=== PATIENT | female | born 1940 | race Caucasian/White ===

== ENCOUNTER 2018-08-15 19:03 | Emergency (ER) | payer MEDICARE ==
[~2018-08-15 19:03] MED LIST: ISOVUE-370 76%-LOCM 1 ML ONE
[2018-08-15 19:41] LABS: Bilirubin Negative (Negative); Blood, Urine Large (Negative); Clarity CLOUDY (Clear); Glucose, Urine (Dipstick) Negative (Negative); Leukocyte Moderate (Negative); Nitrite Negative (Negative); Protein, Urine (Dipstick) 300 mg/dL (Neg-Trace); Urobilinogen 0.2 mg/dL (0.2-1.0); pH, Urine 6.5 (5.0-9.0)
[2018-08-15 19:42] LABS: Bacteria/HPF 1+ HPF (None Seen); Hyaline Casts/LPF 0-3 HYALINE CAST LPF (0-3 Hyaline); Pathc Cast-AUWi Flag 0.43 (0-2.49); RBC/HPF GREATER THAN 50-TNTC HPF (0-3); Squamous Epithelial None Seen HPF (0-3)
[2018-08-15 20:23] LABS: #Basophils 0.1 thou/uL (0.0-0.2); #Eosinphils 0.1 thou/uL (0.0-0.7); #Lymphocytes 4.6 thou/uL (1.20-3.40); #Monocytes 0.8 thou/uL (0.11-0.59); #Neutrophils 6.7 thou/uL (1.40-6.50); %Eosinophils 0.7 % (0.0-10.0); %Lymphocytes 37.4 % (21.0-51.0); %Monocytes 6.4 % (0.0-10.0); %Neutrophils 54.5 % (42.0-75.0); Hemoglobin 13.1 g/dL (12.0-16.0); Mean Corpuscular HGB CONC 34.7 g/dL (32.0-36.0); Mean Corpuscular Hemoglobin 31.5 pg (27.0-31.0); Platelet Count 176 thou/uL (130-400); RBC Distribution Width 12.4 % (11.5-14.5); Red Blood Cell (RBC) Count 4.15 mill/uL (4.20-5.40); White Blood Cell (WBC) Count 12.3 thou/uL (4.8-10.8)
[2018-08-15] MEDS ORDERED: Sodium Chloride 0.9% 100 ML ONE (20:42)
[2018-08-15] MEDS ORDERED: cefTRIAXone\\ROCEPHIN 1 GM VIAL ONE (20:42)
[2018-08-15 20:51] LABS: ALT (SGPT) 21 U/L (8-55); AST (SGOT) 35 U/L (5-34); Albumin 4.5 g/dL (3.4-4.8); Alkaline Phosphatase 86 U/L (40-150); Anion Gap 18 mmol/L (10-20); BUN (Urea Nitrogen) 20 mg/dL (9.8-20.1); Bilirubin, Total 0.6 mg/dL (0.2-1.2); Calc. Creatinine Clearance 0 mL/min (70-130); Carbon Dioxide 21 mmol/L (23-31); Chloride 104 mmol/L (98-107); Estimated GFR-MDRD 51; Globulin 2.9 g/dL (2.4-3.5); Glucose 179 mg/dL (83-110); Lipase 39 U/L (8-78); Potassium 5.2 mmol/L (3.5-5.1); Protein, Total 7.4 g/dL (6.0-8.3); Sodium 138 mmol/L (136-145)
--- NOTE | 2018-08-15 22:05 | CT ---
CT OF THE ABDOMEN AND PELVIS WITH IV CONTRAST 08/15/18 INDICATION: Abdominal pain. COMPARISON: Prior exam dated 12/11/16. FINDINGS: The lung bases are clear. The liver, spleen, pancreas, and right adrenal gland are normal appearing. There is a stable nodule i nvolving the left adrenal body likely reflecting an adenoma. This has been stable since 2008. There i s slight prominence of both ureters with mild right hydronephrosis. There is prominent wall thickenin g involving the bladder. There is an exophytic lesion off the posterior aspect of the superior pole of the right kidney on yeison ge 20 of series 2 measuring 1 cm. There are moderate calcifications involving the abdominal aorta. There is a mild amount of retained s tool within the colon. No drainable fluid collection is evident. Scattered degenerative and osteoarthritic change. IMPRESSION: 1. Moderate wall thickening involving the bladder suspicious for cystitis. There is slight promi nence of both ureters which may reflect sequela of ascending urinary tract infection. There is mild r ight hydronephrosis. There is no jordin evidence of pyelonephritis. 2. Exophytic suspected enhancing lesion off the posterior aspect of the superior pole of the lef t kidney. This was not seen on comparison in 2008 and appears to more prominent upon respective revie w of a comparison from 12/11/16 from [facility]. A nonemergent followup MRI of the abd omen utilizing renal mass protocol may be helpful for improved characterization. 3. Stable left adrenal nodule. 4. Other chronic findings as above. POS: [facility]
== END 2018-08-15 20:35 | disposition home or self-care (01) ==
LOC: ERS 19:03
DX: N39.0 Urinary tract infection, site not specified (principal); K59.00 Constipation, unspecified; N28.89 Other specified disorders of kidney and ureter; E03.9 Hypothyroidism, unspecified; E11.9 Type 2 diabetes mellitus without complications; E78.5 Hyperlipidemia, unspecified; I10 Essential (primary) hypertension; Z79.899 Other long term (current) drug therapy
CPT/HCPCS: 36415; 74177; 80053; 81003; 81015; 83605; 83690; 85025; 87040; 87077; 87086; 87186; 96365; 96375; J0696; J2270; J7050

== ENCOUNTER 2018-10-01 12:06 | Outpatient (CLI) | payer MEDICARE ==
[~2018-10-01 12:06] MED LIST changes: +Gadobenate Dimeglumine 529 MG/1 ML (20ML VIAL) ONE; -ISOVUE-370 76%-LOCM 1 ML ONE
--- NOTE | 2018-10-02 09:51 | MRI ---
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 Status post chemotherapy. TECHNIQUE: Multiplanar, multisequence MR images were obtained of the abdomen utilizing a renal mass protocol. 16 mL of MultiHance was utilized for the examination. Comparisons made with the prior CT of the abdomen and pelvis dated 08/15/18, 01/19/16, and 10/26/09. FINDINGS: The exophytic lesion seen off the posterior medial aspect of the superior pole of the left kidney dem onstrates some T2 hyperintensity and T1 hypointensity, but prominent enhancement consistent with a so lid enhancing renal neoplasm. This lesion measures approximately 1.3 cm on image 24 of series 11. There was an additional poorly seen complex cystic lesion involving the cortex of the superior pole o f the left kidney identified on the current MRI examination. This lesion measures approximately 1.6 c m in size and does demonstrate heterogeneous predominantly central enhancement and is suspicious for renal neoplasm. This is also well seen on image 16 of series 11. There are small bilateral renal cysts. There is persistent mild right-sided hydronephrosis. The left adrenal nodule demonstrates areas of si gnal dropout on the in and out of phase consistent with adenoma. This measures 1.2 cm in size. No pat hologically enlarged lymph nodes are evident. No definite filling defects are seen within the renal v eins. Visualized aspects of the liver, pancreas, right adrenal gland, and spleen appear within normal limits. IMPRESSION: 1. Enhancing partially solid, lesion involving the superior pole of the left kidney that was not wel l seen on the comparison CT evaluations and measures 1.7 cm on the MR examination today. This lesion is highly suspicious for malignancy. 2. Solid exophytic enhancing lesion off the posteromedial aspect of the superior pole of the left ki dney as identified on the CT examination is also suspicious for malignancy. 3. Stable mild right hydronephrosis. 4. Left adrenal adenoma. 5. Small simple bilateral renal cysts. CODE T. POS: [facility]
== END 2018-10-01 12:07 | disposition home or self-care (01) ==
LOC: MRI 12:06
PROVIDERS: ATTEND Family Medicine
DX: N28.89 Other specified disorders of kidney and ureter (principal); N28.1 Cyst of kidney, acquired; N13.30 Unspecified hydronephrosis; D35.02 Benign neoplasm of left adrenal gland
CPT/HCPCS: 74183; A9579

== ENCOUNTER 2019-04-07 10:32 | Outpatient (CLI) | payer MEDICARE ==
--- NOTE | 2019-04-07 10:53 | RAD ---
2 views of the chest 04/07/2019 COMPARISON: 06/16/2013 HISTORY: Renal mass FINDINGS: There is mild increased linear interstitial density noted bilaterally with mild pulmonary h yperinflation, stable. No pneumothorax or pleural fluid. No focal consolidation or alveolar edema. There is atherosclerotic calcification of the abdominal aorta. IMPRESSION: No acute findings.
== END 2019-04-07 10:33 | disposition home or self-care (01) ==
LOC: BICMRI 10:32
PROVIDERS: ATTEND Urology
DX: N28.89 Other specified disorders of kidney and ureter (principal)
CPT/HCPCS: 71046

== ENCOUNTER 2019-06-14 10:33 | Outpatient (CLI) | payer MEDICARE ==
[2019-06-14] MEDS ORDERED: Gadobenate Dimeglumine 529 MG/1 ML (20ML VIAL) ONE (10:42)
--- NOTE | 2019-06-14 15:39 | MRI ---
MRI ABDOMEN WITH AND WITHOUT CONTRAST: HISTORY: M28.89, left renal mass. COMPARISON: MRI from 10/01/2018. FINDINGS: The left superior renal enhancing mass continues to measure approximately 16-17 mm. The posterior co rtex superior pole mass measures approximately 13 mm. These are unchanged in size. No new suspiciou s mass is appreciated. Mild dilatation of the common bile duct, although normal for the patient's ag e. Mild dilatation of the pancreatic duct, similar. Mild dilatation of the right renal pelvis, as well as the proximal ureter, with some calyceal bluntin g, suggesting chronic ureteropelvic junction obstruction. The left kidney is without calyceal dilata tion. The aortic contour is nonaneurysmal. There is mild prominence of the main papilla. The marrow signal is normal. Splenic size is at the upper limits of normal. No abnormal signal with in the liver. IMPRESSION: 1. Size unchanged of left renal masses. 2. Dilatation of the right renal pelvis with calyceal blunting, to the level of the proximal ureter, suggesting chronic ureteropelvic junction obstruction. 3. Mildly distended common bile duct, as well as intrahepatic biliary system and pancreatic duct, wi th a large papilla. This could be the sequela of a bulging papilla versus a mass. Endoscope retrogr korey cholangiopancreatography is recommended. 4. Small renal cysts. POS: [facility]
== END 2019-06-14 10:34 | disposition home or self-care (01) ==
LOC: BICMRI 10:33
PROVIDERS: ATTEND Urology
DX: N28.89 Other specified disorders of kidney and ureter (principal)
CPT/HCPCS: 74183; 82565; A9577

== ENCOUNTER 2019-08-13 19:52 | Inpatient (IN) | payer MEDICARE ==
--- NOTE | 2019-08-13 21:25 | RAD ---
EXAM: Single view of the chest HISTORY: Weakness and dysuria COMPARISON: 03/20/2016 FINDINGS: Single view of the chest shows a normal sized cardiomediastinal silhouette. There is no jimmy dence of consolidation, mass, or pleural effusion. Degenerative changes are seen in the spine. IMPRESSION: No evidence of acute cardiopulmonary disease
[2019-08-13 21:48] LABS: #Lymphocytes 2.7 thou/uL (1.20-3.40); #Monocytes 0.7 thou/uL (0.11-0.59); #Neutrophils 8.1 thou/uL (1.40-6.50); %Basophils 0.4 % (0.0-1.0); %Eosinophils 0.4 % (0.0-10.0); %Lymphocytes 23.5 % (21.0-51.0); %Monocytes 6.1 % (0.0-10.0); %Neutrophils 69.6 % (42.0-75.0); Hemoglobin 9.9 g/dL (12.0-16.0); Mean Corpuscular HGB CONC 34.4 g/dL (32.0-36.0); Mean Corpuscular Volume 87.1 fL (78.0-98.0); Mean Platelet Volume 8.1 fL (7.4-10.4); Platelet Count 269 thou/uL (130-400); RBC Distribution Width 12.5 % (11.5-14.5); Red Blood Cell (RBC) Count 3.31 mill/uL (4.20-5.40); White Blood Cell (WBC) Count 11.6 thou/uL (4.8-10.8)
--- NOTE | 2019-08-13 21:55 | CT ---
EXAM: CT brain without contrast HISTORY: Altered mental status and generalized weakness COMPARISON: 03/04/2019 TECHNIQUE: Multiple contiguous axial images were obtained and a CT of the brain without contrast. FINDINGS: There are scattered hypodensities in the subcortical and periventricular white matter consi stent with small vessel ischemic disease. There is no evidence of hydrocephalus, intracranial hemorrhage, or extra-axial fluid collection. The calvarium and overlying soft tissues are unremarkable. The visualized paranasal sinuses and masto id air cells are well aerated. IMPRESSION: No evidence of acute intracranial abnormality
[2019-08-13 22:10] LABS: ALT (SGPT) 157 U/L (8-55); AST (SGOT) 290 U/L (5-34); Albumin 3.8 g/dL (3.4-4.8); Alkaline Phosphatase 287 U/L (40-110); Anion Gap 16 mmol/L (10-20); BUN (Urea Nitrogen) 42 mg/dL (9.8-20.1); Bilirubin, Total 0.6 mg/dL (0.2-1.2); Calc. Creatinine Clearance 0 mL/min (70-130); Calcium 9.5 mg/dL (7.8-10.44); Carbon Dioxide 20 mmol/L (23-31); Chloride 95 mmol/L (98-107); Estimated GFR-MDRD 28; Globulin 2.9 g/dL (2.4-3.5); Glucose 438 mg/dL (83-110); Potassium 4.3 mmol/L (3.5-5.1); Protein, Total 6.7 g/dL (6.0-8.3); Sodium 127 mmol/L (136-145)
[2019-08-13 23:28] LABS: Bilirubin Negative (Negative); Blood, Urine Moderate (Negative); Glucose, Urine (Dipstick) 100 mg/dL (Negative); Leukocyte Large (Negative); Nitrite Negative (Negative); Protein, Urine (Dipstick) > or equal to 300 mg/dL (Neg-Trace); Urobilinogen 0.2 mg/dL (Less than 2)
[2019-08-13 23:42] LABS: Clarity Cloudy (Clear); WBC/HPF Greater than 50 HPF (0-3)
[2019-08-13 23:43] LABS: Bacteria/HPF 2+ HPF (None Seen); RBC/HPF 0-3 HPF (0-3)
[2019-08-13] MEDS ORDERED: cefTRIAXone\\ROCEPHIN 1 GM VIAL ONE (23:59)
[2019-08-14] MEDS ORDERED: Sodium Chloride 0.9% 1,000 ML IV SCH (01:57)
[2019-08-14] MEDS ORDERED: Ondansetron PF 4 MG/2 ML Vial IVP PRN ×2 (01:57→09:33)
[2019-08-14] MEDS ORDERED: Ondansetron ODT 4 MG TAB SL PRN (01:57)
[2019-08-14] MEDS ORDERED: Acetaminophen 325 MG TAB PO PRN ×2 (01:57→09:33)
[2019-08-14] MEDS ORDERED: Insulin Regular 300 UNITS/3 ML VIAL SC PRN ×2 (02:17)
[2019-08-14] MEDS ORDERED: Dextrose 50% Abboject 50 ML SYRINGE SLOW IVP PRN ×2 (02:17→09:33)
[2019-08-14] MEDS ORDERED: Dextrose 5% in Water 1,000 ML IV PRN ×2 (02:17→09:33)
[2019-08-14 02:30] LABS: ALT (SGPT) 157 U/L (8-55); AST (SGOT) 223 U/L (5-34); Albumin 3.4 g/dL (3.4-4.8); Alkaline Phosphatase 263 U/L (40-110); Anion Gap 15 mmol/L (10-20); BUN (Urea Nitrogen) 38 mg/dL (9.8-20.1); Bilirubin, Total 0.4 mg/dL (0.2-1.2); Calc. Creatinine Clearance 33 mL/min (70-130); Calcium 9.1 mg/dL (7.8-10.44); Carbon Dioxide 21 mmol/L (23-31); Chloride 99 mmol/L (98-107); Estimated GFR-MDRD 36; Globulin 2.8 g/dL (2.4-3.5); Glucose 325 mg/dL (83-110); Lipase 49 U/L (8-78); Potassium 3.9 mmol/L (3.5-5.1); Protein, Total 6.2 g/dL (6.0-8.3); Sodium 131 mmol/L (136-145)
[2019-08-14 02:31] LABS: Troponin I Less than 0.010 ng/mL (< 0.028)
[2019-08-14 06:18] LABS: Troponin I 0.023 ng/mL (< 0.028)
[2019-08-14] MEDS ORDERED: HumaLOG 300 UNITS/3 ML VIAL SC PRN (09:33)
[2019-08-14] MEDS ORDERED: Ondansetron ODT 4 MG TAB PO PRN (09:33)
--- NOTE | 2019-08-14 09:39 | HP ---
PRIMARY CARE PHYSICIAN: Sukhdev Gregorio MD CHIEF COMPLAINT: Feeling generally weak. HISTORY OF PRESENT ILLNESS: Ms. Reyes is a very pleasant 78-year-old female, who has a history of diabetes and hypertension as well as hypothyroidism. She was in her usual state of health until recently. Her appetite has not been doing very well and she says that a couple of days ago she got extremely weak and her legs just gave out under her. She says that she fell twice and her daughter says that she spent the night on the floor. She says that she again got weak on yesterday and says that she just did not quite feel right. Her daughter also says that she seemed a bit confused as to where she was. She also noted that her blood sugar had been running high. However, she did run out of her insulin a few days ago and for this reason, she brought her to the hospital. She also noted that she felt feverish, but she did not actually take her temperature. She does have a history of uterine cancer and she is being evaluated for a left renal mass by Dr. House. She is also seeing Dr. Briseida Zepeda for elevated liver function test. She says they noted that there could be some type of congenital biliary duct problem, however, that is being worked up in the outpatient setting. The patient denies any nausea. No vomiting. No change in bowels and other than generally weak, no other symptoms. She was evaluated in the ER and found to have urinary tract infection as well as acute kidney injury and is being placed in observation. REVIEW OF SYSTEMS: All systems were reviewed and are negative except for that mentioned in the History of Present Illness. PAST MEDICAL HISTORY: Significant for hypothyroidism, diabetes mellitus, hyperlipidemia, hypertension, urethral stenosis, and uterine cancer. PAST SURGICAL HISTORY: She has had an appendectomy 12 years ago, tonsillectomy, cystoscopy, MediPort placed and then removed, a right breast biopsy, a D and C, hysterectomy, and lymph node dissection. ALLERGIES: TO SULFA. SOCIAL HISTORY: She is a nonsmoker and nondrinker. Denies any tobacco use. Her son lives with her. She is a full code. FAMILY HISTORY: Significant for breast cancer in her sister, lymphoma also and paternal grandfather had lung cancer. CURRENT MEDICATIONS: Include; 1. Amlodipine 5 mg twice a day. 2. Levemir FlexPen 14 units subcu at bedtime. 3. Levothyroxine 88 mcg daily. 4. Lisinopril 20 mg twice a day. PHYSICAL EXAMINATION: GENERAL: She is alert and oriented. She appears to be in no acute distress. She is well developed and well nourished. VITAL SIGNS: Blood pressure was 147/62, heart rate 73, respiratory rate of 16, temperature is 98.4, and O2 saturation is 97% on room air. HEENT: Pupils are equal, round, and reactive. Extraocular muscles are intact. Sclerae are anicteric. Throat, no erythema, no exudates. NECK: No adenopathy. No bruits. LUNGS: Clear to auscultation. There are no wheezing, no rales, no rhonchi. CARDIOVASCULAR: She has a normal S1 and S2. She did have a very slight grade 2/6 systolic murmur at the base. No clicks or rubs. ABDOMEN: Obese. It is soft, nontender, and nondistended. Positive for bowel sounds. No rebound. No guarding. EXTREMITIES: There is no clubbing or cyanosis. No edema. NEUROLOGIC: Grossly nonfocal. LABORATORY RESULTS: Urinalysis was significant for 2+ bacteria, greater than 50,000 white blood cells. CBC; the white blood cell count is 11.6, hemoglobin 9.9, hematocrit is 28.8, and platelet count is 269. ASSESSMENT AND PLAN: 1. This is a pleasant 78-year-old female, who presents to the emergency room with generalized weakness. She was found to have acute kidney injury with a creatinine of 1.4 as well as urinary tract infection and elevated liver function test. She is being placed in observation. We will go ahead and start her on IV fluids as well as Rocephin for the urinary tract infection. Cultures hopefully have been taken already from the ER. If not, these will be ordered and further antibiotics will be dependent on these results. 2. Elevated liver function test. This appears to be in the process of evaluation in the outpatient setting by Dr. Zepeda and ultrasound has been ordered and we will follow up on these results. 3. Acute kidney injury. We will place her on gentle hydration and follow her kidney function test. 4. Diabetes mellitus. This appears to be not well controlled. We will start her back on her insulin as well as a sliding scale and monitor. Otherwise, we will also check a vitamin D level due to her falls and further recommendations to follow. Job ID: [id number]
[2019-08-14] MEDS: Sodium Chloride 0.9% 1,000 ML IV SCH ×2 (09:48→21:14)
--- NOTE | 2019-08-14 10:45 | ULT ---
GALLBLADDER ULTRASOUND: INDICATION: Elevated liver function tests. FINDINGS: Gallbladder has a normal appearance. No evidence of gallstones. The common duct is normal caliber. Visualized liver and pancreas appear unremarkable. The right kidney shows mild to moderate hydronep hrosis. IMPRESSION: Moderate right hydronephrosis. POS: [facility]
[2019-08-14] MEDS: HumaLOG 300 UNITS/3 ML VIAL SC PRN ×2 (12:12→16:59)
[2019-08-14] MEDS: Insulin Glargine 14 UNITS in Pre-Filled Syringe 1 EACH SC SCH (19:55)
[2019-08-14] MEDS: Amlodipine 5 MG TAB PO SCH (19:55)
[2019-08-14] MEDS ORDERED: Prevnar 13-Val Conj/PF 0.5 ML SYRINGE IM ONE (21:00)
[2019-08-14] MEDS ORDERED: FLU VACC TS2019-20(65YR UP)/PF 180 MCG/0.5 ML SYRINGE IM ONE (21:00)
[2019-08-14] MEDS ORDERED: LEVEMIR SC SCH (21:00)
[2019-08-14] MEDS: cefTRIAXone\\ROCEPHIN 1 GM in Sodium Chloride 0.9% 100 ML IVPB SCH (21:13)
[2019-08-15] MEDS: Sodium Chloride 0.9% 1,000 ML IV SCH ×3 (05:19→20:19)
[2019-08-15] MEDS: Levothyroxine Sodium 88 MCG TAB PO SCH (05:19)
[2019-08-15 07:53] LABS: #Basophils 0.1 thou/uL (0.0-0.2); #Eosinphils 0.1 thou/uL (0.0-0.7); #Lymphocytes 2.6 thou/uL (1.20-3.40); #Monocytes 0.7 thou/uL (0.11-0.59); #Neutrophils 6.9 thou/uL (1.40-6.50); %Basophils 1.3 % (0.0-1.0); %Eosinophils 1.2 % (0.0-10.0); %Lymphocytes 25.1 % (21.0-51.0); %Monocytes 6.4 % (0.0-10.0); %Neutrophils 66.1 % (42.0-75.0); Hemoglobin 9.6 g/dL (12.0-16.0); Mean Corpuscular HGB CONC 35.2 g/dL (32.0-36.0); Mean Corpuscular Hemoglobin 31.3 pg (27.0-31.0); Platelet Count 253 thou/uL (130-400); RBC Distribution Width 12.3 % (11.5-14.5); Red Blood Cell (RBC) Count 3.05 mill/uL (4.20-5.40); White Blood Cell (WBC) Count 10.4 thou/uL (4.8-10.8)
[2019-08-15 08:12] LABS: Anion Gap 15 mmol/L (10-20); BUN (Urea Nitrogen) 19 mg/dL (9.8-20.1); Calc. Creatinine Clearance 50 mL/min (70-130); Calcium 8.6 mg/dL (7.8-10.44); Carbon Dioxide 18 mmol/L (23-31); Chloride 108 mmol/L (98-107); Estimated GFR-MDRD 59; Glucose 192 mg/dL (83-110); Potassium 3.7 mmol/L (3.5-5.1); Sodium 137 mmol/L (136-145)
[2019-08-15] MEDS: Amlodipine 5 MG TAB PO SCH ×2 (08:38→20:18)
[2019-08-15] MEDS: Saccharomyces boulardii 250 MG CAP PO SCH (08:38)
[2019-08-15] MEDS ORDERED: Levothyroxine Sodium 75 MCG TAB PO SCH (09:00)
--- NOTE | 2019-08-15 12:23 | PDOC.HOSPP ---
- Subjective Encounter Date: 08/15/19 Encounter Time: 12:21 Subjective: Ms. Reyes was seen today in follow-up of UTI. She notes dysuria, but she says it only lasts a few minutes. Her nurse notes that she is confused at times, and still a bit wobbly. - Objective Vital Signs & Weight: Vital Signs (12 hours) Temp Pulse Resp BP Pulse Ox 08/15/19 12:00 98.6 F 75 18 144/64 H 94 L 08/15/19 08:38 68 08/15/19 08:00 99.2 F 68 18 152/68 H 93 L 08/15/19 05:34 98.6 F 63 16 144/63 H 95 08/15/19 00:26 98.5 F 70 18 179/78 H 95 Weight Weight 142 lb 5 oz I&O: 08/14/19 08/15/19 08/16/19 06:59 06:59 06:59 Intake Total 500 1300 Balance 500 1300 Result Diagrams: 08/15/19 07:22 08/15/19 07:22 Additional Labs: Accuchecks 08/15/19 08/15/19 08/14/19 11:26 05:23 19:57 POC Glucose 353 H 202 H 269 H 08/14/19 16:07 POC Glucose 176 H Hospitalist ROS - Medication Medications: Active Medications Generic Name Dose Route Start Last Admin Trade Name Freq PRN Reason Stop Dose Admin Amlodipine Besylate 5 mg 08/14/19 21:00 08/15/19 08:38 Norvasc PO 5 mg BID ALEX Administration Ceftriaxone Sodium 1 gm/ 100 mls @ 200 mls/hr 08/14/19 22:00 08/14/19 21:13 Sodium Chloride IVPB 100 mls Q24HR ALEX Administration Sodium Chloride 1,000 mls @ 100 mls/hr 08/14/19 09:33 08/15/19 05:19 Normal Saline 0.9% IV 1,000 mls .Q10H ALEX Administration Insulin Glargine 14 units/ 0.14 mls @ 0 mls/hr 08/14/19 21:00 08/14/19 19:55 Miscellaneous Medication SC 0.14 mls HS ALEX Administration Insulin Human Lispro 0 units 08/14/19 09:33 08/14/19 16:59 Humalog SC 2 unit .MODERATE SLIDING SC PRN Administration Moderate Correctional Scale Levothyroxine Sodium 88 mcg 08/15/19 06:00 08/15/19 05:19 Synthroid PO 88 mcg 0600 ALEX Administration Saccharomyces Boulardii 250 mg 08/15/19 09:00 08/15/19 08:38 Florastor PO 250 mg DAILY ALEX Administration Sodium Chloride 10 ml 08/14/19 21:00 08/14/19 21:59 Flush - Normal Saline IVF Not Given Q12HR ALEX - Exam Eye: PERRL, anicteric sclera Heart: RRR, no murmur, no gallops, no rubs, normal peripheral pulses Respiratory: CTAB, no wheezes, no rales, no ronchi, normal chest expansion, no tachypnea, normal percussion Gastrointestinal: soft, non-tender, non-distended, normal bowel sounds, no palpable masses, no hepatomegaly, no splenomegaly Extremities: no cyanosis, no clubbing, 1+ LE edema Psychiatric: normal affect, normal behavior, oriented to person, oriented to place Hosp A/P (1) Acute kidney injury Code(s): N17.9 - ACUTE KIDNEY FAILURE, UNSPECIFIED Status: Acute (2) UTI (urinary tract infection) due to urinary indwelling catheter Code(s): T83.51XA - ; N39.0 - URINARY TRACT INFECTION, SITE NOT SPECIFIED Status: Acute (3) DM2 (diabetes mellitus, type 2) Status: Chronic (4) Hypertension Code(s): I10 - ESSENTIAL (PRIMARY) HYPERTENSION Status: Chronic (5) Uterine cancer Code(s): C55 - MALIGNANT NEOPLASM OF UTERUS, PART UNSPECIFIED Status: Chronic - Plan * UTI- urine culture is growing enterococcus- which is tenorio-sensitive * Continue Rocephin * Acute kidney injury- from volume depletion- continue to hold Lisiopril- will continue IV fluids, but will cut the rate back * HTN- blood pressure is a bit elevated- - continue Amlodipine, Lisinopril is on hold- will add Hydralazine as needed * DM- blood glucose is elevated- will add Lantus in the AM * Due to acute kidney injury, and mild confusion, and weakness, her status will be changed to inpatient, and will place a case management consult for fpc placement, as well as home health for home PT/OT
[2019-08-15] MEDS: HumaLOG 300 UNITS/3 ML VIAL SC PRN (12:25)
[2019-08-15] MEDS ORDERED: hydrALAZINE 25 MG TAB PO PRN (12:27)
[2019-08-15] MEDS: Phenazopyridine HCl 97.5 MG TABLET PO SCH ×2 (14:56→18:38)
[2019-08-15] MEDS: Insulin Glargine 14 UNITS in Pre-Filled Syringe 1 EACH SC SCH (20:18)
[2019-08-15] MEDS: cefTRIAXone\\ROCEPHIN 1 GM in Sodium Chloride 0.9% 100 ML IVPB SCH (20:19)
[2019-08-16 05:01] LABS: Anion Gap 12 mmol/L (10-20); BUN (Urea Nitrogen) 11 mg/dL (9.8-20.1); Calc. Creatinine Clearance 60 mL/min (70-130); Calcium 8.5 mg/dL (7.8-10.44); Carbon Dioxide 19 mmol/L (23-31); Chloride 110 mmol/L (98-107); Estimated GFR-MDRD 72; Glucose 101 mg/dL (83-110); Potassium 3.3 mmol/L (3.5-5.1); Sodium 138 mmol/L (136-145)
[2019-08-16] MEDS: Levothyroxine Sodium 88 MCG TAB PO SCH (05:52)
[2019-08-16] MEDS: Saccharomyces boulardii 250 MG CAP PO SCH (10:41)
[2019-08-16] MEDS: Amlodipine 5 MG TAB PO SCH ×2 (10:41→20:05)
[2019-08-16] MEDS: Phenazopyridine HCl 97.5 MG TABLET PO SCH ×3 (10:41→16:57)
[2019-08-16] MEDS: Insulin Glargine 8 UNITS in Pre-Filled Syringe 1 EACH SC SCH (10:44)
--- NOTE | 2019-08-16 14:31 | PDOC.HOSPP ---
- Subjective Encounter Date: 08/16/19 Encounter Time: 14:26 Subjective: Ms. Reyes was seen today in follow-up of UTI and acute kidney injury. She does not have any complaints today. - Objective Vital Signs & Weight: Vital Signs (12 hours) Temp Pulse Resp BP BP Pulse Ox 08/16/19 12:01 97.4 F L 71 18 173/74 H 95 08/16/19 07:46 98.6 F 60 18 137/58 L 90 L Weight Weight 144 lb 8.279 oz I&O: 08/15/19 08/16/19 08/17/19 06:59 06:59 06:59 Intake Total 1300 Balance 1300 Result Diagrams: 08/15/19 07:22 08/16/19 04:34 Additional Labs: Accuchecks 08/16/19 08/16/19 08/15/19 11:54 05:43 19:59 POC Glucose 253 H 97 163 H 08/15/19 16:19 POC Glucose 148 H Hospitalist ROS - Medication Medications: Active Medications Generic Name Dose Route Start Last Admin Trade Name Freq PRN Reason Stop Dose Admin Amlodipine Besylate 5 mg 08/14/19 21:00 08/16/19 10:41 Norvasc PO 5 mg BID ALEX Administration Ceftriaxone Sodium 1 gm/ 100 mls @ 200 mls/hr 08/14/19 22:00 08/15/19 20:19 Sodium Chloride IVPB 100 mls Q24HR ALEX Administration Insulin Glargine 14 units/ 0.14 mls @ 0 mls/hr 08/14/19 21:00 08/15/19 20:18 Miscellaneous Medication SC 0.14 mls HS ALEX Administration Insulin Glargine 8 units/ 0.08 mls @ 0 mls/hr 08/16/19 09:00 08/16/19 10:44 Miscellaneous Medication SC 0.08 mls QAM ALEX Administration Sodium Chloride 1,000 mls @ 60 mls/hr 08/15/19 12:32 08/15/19 20:19 Normal Saline 0.9% IV 1,000 mls .[id number] ALEX Administration Insulin Human Lispro 0 units 08/14/19 09:33 08/15/19 12:25 Humalog SC 10 unit .MODERATE SLIDING SC PRN Administration Moderate Correctional Scale Levothyroxine Sodium 88 mcg 08/15/19 06:00 08/16/19 05:52 Synthroid PO 88 mcg 0600 ALEX Administration Phenazopyridine HCl 97.5 mg 08/15/19 13:00 08/16/19 10:41 Azo Standard PO 97.5 mg PC ALEX Administration Saccharomyces Boulardii 250 mg 08/15/19 09:00 08/16/19 10:41 Florastor PO 250 mg DAILY ALEX Administration Sodium Chloride 10 ml 08/14/19 21:00 08/16/19 10:45 Flush - Normal Saline IVF Not Given Q12HR ALEX - Exam Eye: PERRL, anicteric sclera Heart: RRR, no murmur, no gallops, no rubs, normal peripheral pulses Respiratory: CTAB, no wheezes, no rales, no ronchi, normal chest expansion, no tachypnea, normal percussion Gastrointestinal: soft, non-tender, non-distended, normal bowel sounds, no palpable masses, no hepatomegaly Extremities: no cyanosis, no clubbing, no edema Hosp A/P (1) Acute kidney injury Code(s): N17.9 - ACUTE KIDNEY FAILURE, UNSPECIFIED Status: Acute (2) UTI (urinary tract infection) due to urinary indwelling catheter Code(s): T83.51XA - ; N39.0 - URINARY TRACT INFECTION, SITE NOT SPECIFIED Status: Acute (3) DM2 (diabetes mellitus, type 2) Status: Chronic (4) Hypertension Code(s): I10 - ESSENTIAL (PRIMARY) HYPERTENSION Status: Chronic (5) Uterine cancer Code(s): C55 - MALIGNANT NEOPLASM OF UTERUS, PART UNSPECIFIED Status: Chronic - Plan * UTI- urine culture is growing enterococcus- will transition her to Omnicef * Acute kidney injury- improved * HTN- blood pressure is a bit elevated- - continue Amlodipine, Lisinopril is on hold- will add Hydralazine as needed * DM- blood glucose is elevated- will add Lantus in the AM * Deconditioning and frequent falls.- continue PT/OT and awaiting Skilled or Rehab transfer
[2019-08-16] MEDS: Sodium Chloride 0.9% 1,000 ML IV SCH (20:06)
[2019-08-16] MEDS: Insulin Glargine 14 UNITS in Pre-Filled Syringe 1 EACH SC SCH (21:36)
[2019-08-16] MEDS: cefTRIAXone\\ROCEPHIN 1 GM in Sodium Chloride 0.9% 100 ML IVPB SCH (21:38)
[2019-08-17] MEDS: Levothyroxine Sodium 88 MCG TAB PO SCH (05:54)
[2019-08-17] MEDS: Phenazopyridine HCl 97.5 MG TABLET PO SCH ×3 (10:41→18:04)
[2019-08-17] MEDS: Insulin Glargine 8 UNITS in Pre-Filled Syringe 1 EACH SC SCH (10:41)
[2019-08-17] MEDS: Saccharomyces boulardii 250 MG CAP PO SCH (10:41)
[2019-08-17] MEDS: Amlodipine 5 MG TAB PO SCH ×2 (10:44→20:34)
[2019-08-17] MEDS: Sodium Chloride 0.9% 1,000 ML IV SCH (15:47)
[2019-08-17 16:20] LABS: ALT (SGPT) 56 U/L (8-55); AST (SGOT) 21 U/L (5-34); Albumin 3.6 g/dL (3.4-4.8); Alkaline Phosphatase 224 U/L (40-110); Bilirubin, Direct 0.1 mg/dL (0.1-0.3); Bilirubin, Total 0.3 mg/dL (0.2-1.2); Protein, Total 6.7 g/dL (6.0-8.3)
--- NOTE | 2019-08-17 16:22 | PDOC.HOSPP ---
- Subjective Encounter Date: 08/17/19 Encounter Time: 16:21 Subjective: Ms. Reyes was seen today in follow-up of UTI and generalized weakness. - Objective Vital Signs & Weight: Vital Signs (12 hours) Temp Pulse Resp BP BP Pulse Ox 08/17/19 11:45 164/70 H 08/17/19 10:44 66 08/17/19 08:00 97 08/17/19 07:43 98.3 F 66 16 144/66 H 97 Weight Weight 144 lb 8.279 oz I&O: 08/16/19 08/17/19 08/18/19 06:59 06:59 06:59 Intake Total 593 Balance 593 Result Diagrams: 08/15/19 07:22 08/16/19 04:34 Additional Labs: Accuchecks 08/17/19 08/17/19 08/17/19 13:02 10:47 05:18 POC Glucose 133 H 174 H 111 H 08/16/19 08/16/19 08/16/19 21:47 20:16 16:29 POC Glucose 259 H 278 H 198 H Hospitalist ROS - Medication Medications: Active Medications Generic Name Dose Route Start Last Admin Trade Name Freq PRN Reason Stop Dose Admin Amlodipine Besylate 5 mg 08/14/19 21:00 08/17/19 10:44 Norvasc PO 5 mg BID ALEX Administration Ceftriaxone Sodium 1 gm/ 100 mls @ 200 mls/hr 08/14/19 22:00 08/16/19 21:38 Sodium Chloride IVPB 100 mls Q24HR ALEX Administration Insulin Glargine 14 units/ 0.14 mls @ 0 mls/hr 08/14/19 21:00 08/16/19 21:36 Miscellaneous Medication SC 0.14 mls HS ALEX Administration Insulin Glargine 8 units/ 0.08 mls @ 0 mls/hr 08/16/19 09:00 08/17/19 10:41 Miscellaneous Medication SC 0.08 mls QAM ALEX Administration Sodium Chloride 1,000 mls @ 60 mls/hr 08/15/19 12:32 08/17/19 15:47 Normal Saline 0.9% IV 1,000 mls .[id number] ALEX Administration Insulin Human Lispro 0 units 08/14/19 09:33 08/15/19 12:25 Humalog SC 10 unit .MODERATE SLIDING SC PRN Administration Moderate Correctional Scale Levothyroxine Sodium 88 mcg 08/15/19 06:00 08/17/19 05:54 Synthroid PO 88 mcg 0600 ALEX Administration Phenazopyridine HCl 97.5 mg 08/15/19 13:00 08/17/19 13:58 Azo Standard PO 97.5 mg PC ALEX Administration Saccharomyces Boulardii 250 mg 08/15/19 09:00 08/17/19 10:41 Florastor PO 250 mg DAILY ALEX Administration Sodium Chloride 10 ml 08/14/19 21:00 08/17/19 10:50 Flush - Normal Saline IVF 10 ml Q12HR ALEX Administration Sodium Chloride 10 ml 08/14/19 09:36 08/17/19 10:45 Flush - Normal Saline IVF 10 ml PRN PRN Administration Saline Flush - Exam Eye: PERRL, anicteric sclera Heart: RRR, no murmur, no gallops, no rubs, normal peripheral pulses Respiratory: CTAB, no wheezes, no rales, no ronchi, normal chest expansion Gastrointestinal: soft, non-tender, non-distended, normal bowel sounds, no palpable masses Extremities: no cyanosis, 1+ LE edema Hosp A/P (1) Acute kidney injury Code(s): N17.9 - ACUTE KIDNEY FAILURE, UNSPECIFIED Status: Acute (2) UTI (urinary tract infection) due to urinary indwelling catheter Code(s): T83.51XA - ; N39.0 - URINARY TRACT INFECTION, SITE NOT SPECIFIED Status: Acute (3) DM2 (diabetes mellitus, type 2) Status: Chronic (4) Hypertension Code(s): I10 - ESSENTIAL (PRIMARY) HYPERTENSION Status: Chronic (5) Uterine cancer Code(s): C55 - MALIGNANT NEOPLASM OF UTERUS, PART UNSPECIFIED Status: Chronic - Plan * UTI- urine culture is growing enterococcus- will transition her to Omnicef * Acute kidney injury- improved * CEA and CA19-9 have been ordered- ( work-up planned y Dr. Zepeda) * HTN- blood pressure is a bit better * DM- blood glucose is elevated- better * Deconditioning and frequent falls.- continue PT/OT and awaiting Skilled or Rehab transfer
[2019-08-17] MEDS: HumaLOG 300 UNITS/3 ML VIAL SC PRN (16:40)
[2019-08-17] MEDS: Insulin Glargine 14 UNITS in Pre-Filled Syringe 1 EACH SC SCH (20:34)
[2019-08-17] MEDS: Cefdinir 300 MG CAP PO SCH (20:34)
[2019-08-18] MEDS: Levothyroxine Sodium 88 MCG TAB PO SCH (05:26)
[2019-08-18] MEDS: Phenazopyridine HCl 97.5 MG TABLET PO SCH ×3 (08:29→18:43)
[2019-08-18] MEDS: Amlodipine 5 MG TAB PO SCH ×2 (08:29→20:09)
[2019-08-18] MEDS: Cefdinir 300 MG CAP PO SCH ×2 (08:29→20:09)
[2019-08-18] MEDS: Insulin Glargine 8 UNITS in Pre-Filled Syringe 1 EACH SC SCH (08:34)
[2019-08-18] MEDS: Saccharomyces boulardii 250 MG CAP PO SCH (09:30)
[2019-08-18] MEDS: HumaLOG 300 UNITS/3 ML VIAL SC PRN (12:29)
--- NOTE | 2019-08-18 13:25 | PDOC.HOSPP ---
- Subjective Encounter Date: 08/18/19 Encounter Time: 13:24 Subjective: Ms. Reyes was seen in follow-up of UTI. She does not have any complaints today. - Objective Vital Signs & Weight: Vital Signs (12 hours) Pulse BP 08/18/19 08:29 110 H 132/80 Weight Weight 144 lb 8.279 oz I&O: 08/17/19 08/18/19 08/19/19 06:59 06:59 06:59 Intake Total 833 Balance 833 Result Diagrams: 08/15/19 07:22 08/16/19 04:34 Additional Labs: Accuchecks 08/18/19 08/18/19 08/17/19 11:54 05:30 21:51 POC Glucose 213 H 77 183 H 08/17/19 08/17/19 16:14 13:02 POC Glucose 254 H 133 H Hospitalist ROS - Medication Medications: Active Medications Generic Name Dose Route Start Last Admin Trade Name Freq PRN Reason Stop Dose Admin Amlodipine Besylate 5 mg 08/14/19 21:00 08/18/19 08:29 Norvasc PO 5 mg BID ALEX Administration Cefdinir 300 mg 08/17/19 21:00 08/18/19 08:29 Omnicef PO 300 mg BID ALEX Administration Insulin Glargine 14 units/ 0.14 mls @ 0 mls/hr 08/14/19 21:00 08/17/19 20:34 Miscellaneous Medication SC 0.14 mls HS ALEX Administration Insulin Glargine 8 units/ 0.08 mls @ 0 mls/hr 08/16/19 09:00 08/18/19 08:34 Miscellaneous Medication SC 0.08 mls QAM ALEX Administration Insulin Human Lispro 0 units 08/14/19 09:33 08/18/19 12:29 Humalog SC 4 unit .MODERATE SLIDING SC PRN Administration Moderate Correctional Scale Levothyroxine Sodium 88 mcg 08/15/19 06:00 08/18/19 05:26 Synthroid PO 88 mcg 0600 ALEX Administration Phenazopyridine HCl 97.5 mg 08/15/19 13:00 08/18/19 12:24 Azo Standard PO 97.5 mg PC ALEX Administration Saccharomyces Boulardii 250 mg 08/15/19 09:00 08/18/19 09:30 Florastor PO 250 mg DAILY ALEX Administration Sodium Chloride 10 ml 08/14/19 21:00 08/18/19 09:00 Flush - Normal Saline IVF 10 ml Q12HR ALEX Administration Sodium Chloride 10 ml 08/14/19 09:36 08/17/19 10:45 Flush - Normal Saline IVF 10 ml PRN PRN Administration Saline Flush - Exam Eye: PERRL, anicteric sclera Heart: RRR, no murmur, no gallops, no rubs Respiratory: CTAB, no wheezes, no rales, no ronchi, normal chest expansion, no tachypnea, normal percussion Gastrointestinal: soft, non-tender, non-distended, normal bowel sounds, no palpable masses, no hepatomegaly Extremities: no edema Hosp A/P (1) Acute kidney injury Code(s): N17.9 - ACUTE KIDNEY FAILURE, UNSPECIFIED Status: Acute (2) UTI (urinary tract infection) due to urinary indwelling catheter Code(s): T83.51XA - ; N39.0 - URINARY TRACT INFECTION, SITE NOT SPECIFIED Status: Acute (3) DM2 (diabetes mellitus, type 2) Status: Chronic (4) Hypertension Code(s): I10 - ESSENTIAL (PRIMARY) HYPERTENSION Status: Chronic (5) Uterine cancer Code(s): C55 - MALIGNANT NEOPLASM OF UTERUS, PART UNSPECIFIED Status: Chronic - Plan * UTI- urine culture is growing enterococcus- continue Omnicef * Acute kidney injury- improved- will check renal function in the AM * CEA and CA19-9 were normal * HTN- blood pressure is stable * DM- blood glucose is stable * Deconditioning and frequent falls.- continue PT/OT and awaiting Skilled or Rehab transfer
[2019-08-18] MEDS: Insulin Glargine 14 UNITS in Pre-Filled Syringe 1 EACH SC SCH (20:08)
[2019-08-19] MEDS: Levothyroxine Sodium 88 MCG TAB PO SCH (06:04)
[2019-08-19 07:19] LABS: #Basophils 0.1 thou/uL (0.0-0.2); #Eosinphils 0.2 thou/uL (0.0-0.7); #Lymphocytes 3.3 thou/uL (1.20-3.40); #Monocytes 0.5 thou/uL (0.11-0.59); #Neutrophils 3.7 thou/uL (1.40-6.50); %Basophils 1.3 % (0.0-1.0); %Eosinophils 2.6 % (0.0-10.0); %Lymphocytes 42.6 % (21.0-51.0); %Monocytes 5.8 % (0.0-10.0); %Neutrophils 47.8 % (42.0-75.0); Hemoglobin 9.5 g/dL (12.0-16.0); Mean Corpuscular HGB CONC 33.9 g/dL (32.0-36.0); Mean Corpuscular Hemoglobin 30.2 pg (27.0-31.0); Mean Corpuscular Volume 89.3 fL (78.0-98.0); Mean Platelet Volume 7.7 fL (7.4-10.4); Platelet Count 246 thou/uL (130-400); RBC Distribution Width 12.7 % (11.5-14.5); Red Blood Cell (RBC) Count 3.15 mill/uL (4.20-5.40); White Blood Cell (WBC) Count 7.7 thou/uL (4.8-10.8)
[2019-08-19 07:36] LABS: Anion Gap 12 mmol/L (10-20); BUN (Urea Nitrogen) 8 mg/dL (9.8-20.1); Calc. Creatinine Clearance 65 mL/min (70-130); Calcium 8.6 mg/dL (7.8-10.44); Carbon Dioxide 25 mmol/L (23-31); Chloride 110 mmol/L (98-107); Estimated GFR-MDRD 79; Glucose 67 mg/dL (83-110); Potassium 3.2 mmol/L (3.5-5.1); Sodium 144 mmol/L (136-145)
[2019-08-19] MEDS: Insulin Glargine 8 UNITS in Pre-Filled Syringe 1 EACH SC SCH (09:03)
[2019-08-19] MEDS: Phenazopyridine HCl 97.5 MG TABLET PO SCH ×2 (09:04→11:27)
[2019-08-19] MEDS: Cefdinir 300 MG CAP PO SCH ×2 (09:04→20:22)
[2019-08-19] MEDS: Saccharomyces boulardii 250 MG CAP PO SCH (09:05)
[2019-08-19] MEDS: Amlodipine 5 MG TAB PO SCH ×2 (09:05→20:22)
[2019-08-19] MEDS ORDERED: Potassium Chloride 20 MEQ TAB PO SCH (09:15)
[2019-08-19] MEDS ORDERED: Polyethylene Glycol 3350 17 GM Packet PO PRN (11:51)
--- NOTE | 2019-08-19 11:53 | PDOC.HOSPP ---
- Subjective Encounter Date: 08/19/19 Encounter Time: 11:51 Subjective: Ms. Reyes was seen today in follow-up of generalized weakness, and UTI. She had an episode where her blood glucose dropped last night. - Objective Vital Signs & Weight: Vital Signs (12 hours) Temp Pulse Resp BP Pulse Ox 08/19/19 09:05 96 08/19/19 08:00 97 08/19/19 07:45 98.2 F 96 18 169/72 H 97 Weight Weight 144 lb 8.279 oz I&O: 08/18/19 08/19/19 08/20/19 06:59 06:59 06:59 Intake Total 833 2787 Balance 833 2787 Result Diagrams: 08/19/19 06:55 08/19/19 06:55 Additional Labs: Accuchecks 08/19/19 08/19/19 08/18/19 11:12 06:08 19:14 POC Glucose 217 H 84 238 H 08/18/19 08/18/19 08/18/19 18:37 18:11 11:54 POC Glucose 63 L 63 L 213 H Hospitalist ROS - Medication Medications: Active Medications Generic Name Dose Route Start Last Admin Trade Name Freq PRN Reason Stop Dose Admin Amlodipine Besylate 5 mg 08/14/19 21:00 08/19/19 09:05 Norvasc PO 5 mg BID ALEX Administration Cefdinir 300 mg 08/17/19 21:00 08/19/19 09:04 Omnicef PO 300 mg BID ALEX Administration Dextrose/Water 25 gm 08/14/19 09:33 08/18/19 18:43 Dextrose 50% SLOW IVP 25 gm PRN PRN Administration Hypoglycemia Insulin Glargine 14 units/ 0.14 mls @ 0 mls/hr 08/14/19 21:00 08/18/19 20:08 Miscellaneous Medication SC 0.14 mls HS ALEX Administration Levothyroxine Sodium 88 mcg 08/15/19 06:00 08/19/19 06:04 Synthroid PO 88 mcg 0600 ALEX Administration Saccharomyces Boulardii 250 mg 08/15/19 09:00 08/19/19 09:05 Florastor PO 250 mg DAILY ALEX Administration Sodium Chloride 10 ml 08/14/19 21:00 08/19/19 09:05 Flush - Normal Saline IVF 10 ml Q12HR ALEX Administration Sodium Chloride 10 ml 08/14/19 09:36 08/17/19 10:45 Flush - Normal Saline IVF 10 ml PRN PRN Administration Saline Flush - Exam Eye: PERRL Heart: RRR, no murmur, no gallops, no rubs, normal peripheral pulses Respiratory: CTAB, no wheezes, no rales, no ronchi, normal chest expansion Gastrointestinal: soft, non-tender, non-distended, normal bowel sounds, no palpable masses, no hepatomegaly Extremities: no cyanosis, 1+ LE edema Hosp A/P (1) Acute kidney injury Code(s): N17.9 - ACUTE KIDNEY FAILURE, UNSPECIFIED Status: Acute (2) UTI (urinary tract infection) due to urinary indwelling catheter Code(s): T83.51XA - ; N39.0 - URINARY TRACT INFECTION, SITE NOT SPECIFIED Status: Acute (3) DM2 (diabetes mellitus, type 2) Status: Chronic (4) Hypertension Code(s): I10 - ESSENTIAL (PRIMARY) HYPERTENSION Status: Chronic (5) Uterine cancer Code(s): C55 - MALIGNANT NEOPLASM OF UTERUS, PART UNSPECIFIED Status: Chronic - Plan * UTI- urine culture is growing enterococcus- continue Omnicef * Acute kidney injury- improved- will check renal function in the AM * HTN- blood pressure is a bit elevated today- will re-start Lisinopril given that her renal function has improved. * DM- blood glucose has been a bit variable, and her daughter is concerned that she has a bad reaction to the short acting insulin * Will discontinue all Humalog, and increase the Lantus, and will allow her blood glucose to run in the low 200's * Will repeat the Vitamin D level * Deconditioning and frequent falls.- continue PT/OT and awaiting Skilled
[2019-08-19] MEDS: Docusate 100 MG CAP PO SCH (20:22)
[2019-08-19] MEDS: Lisinopril 10 MG TAB PO SCH (20:22)
[2019-08-19] MEDS: Insulin Glargine 14 UNITS in Pre-Filled Syringe 1 EACH SC SCH (22:37)
[2019-08-20] MEDS: Levothyroxine Sodium 88 MCG TAB PO SCH (06:29)
[2019-08-20 08:42] VITALS: TEMP 98.6
[2019-08-20] MEDS: Amlodipine 5 MG TAB PO SCH (08:56)
[2019-08-20] MEDS: Cefdinir 300 MG CAP PO SCH (08:56)
[2019-08-20] MEDS: Docusate 100 MG CAP PO SCH (08:56)
[2019-08-20] MEDS: Saccharomyces boulardii 250 MG CAP PO SCH (08:56)
[2019-08-20] MEDS: Lisinopril 10 MG TAB PO SCH (08:56)
[2019-08-20 08:57] VITALS: BP 184/77
[2019-08-20] MEDS ORDERED: Ergocalciferol 1.25 MG(50,000 UNITS) CAP PO SCH (09:00)
[2019-08-20] MEDS ORDERED: cloNIDine 0.1 MG TAB PO SCH (09:00)
[2019-08-20] MEDS ORDERED: Insulin Glargine 10 UNITS in Pre-Filled Syringe 1 EACH SC SCH (09:00)
--- NOTE | 2019-08-20 10:47 | PDOC.HOSPP ---
- Subjective Encounter Date: 08/20/19 Encounter Time: 10:45 Subjective: Ms. Reyes was seen today in follow-up of UTI and generalized weakness. She does not have any complaints this morning. - Objective Vital Signs & Weight: Vital Signs (12 hours) Temp Pulse Resp BP BP Pulse Ox 08/20/19 08:56 63 184/77 H 08/20/19 07:37 98.6 F 63 18 146/65 H 94 L Weight Weight 144 lb 8.279 oz I&O: 08/19/19 08/20/19 08/21/19 06:59 06:59 06:59 Intake Total 2787 240 Balance 2787 240 Result Diagrams: 08/19/19 06:55 08/19/19 06:55 Additional Labs: Accuchecks 08/20/19 08/19/19 08/19/19 06:36 22:29 16:22 POC Glucose 142 H 171 H 239 H 08/19/19 11:12 POC Glucose 217 H Hospitalist ROS - Medication Medications: Active Medications Generic Name Dose Route Start Last Admin Trade Name Freq PRN Reason Stop Dose Admin Amlodipine Besylate 5 mg 08/14/19 21:00 08/20/19 08:56 Norvasc PO 5 mg BID ALEX Administration Cefdinir 300 mg 08/17/19 21:00 08/20/19 08:56 Omnicef PO 300 mg BID ALEX Administration Clonidine 0.1 mg 08/20/19 09:00 08/20/19 08:56 Catapres PO 0.1 mg BID ALEX Administration Dextrose/Water 25 gm 08/14/19 09:33 08/18/19 18:43 Dextrose 50% SLOW IVP 25 gm PRN PRN Administration Hypoglycemia Docusate Sodium 100 mg 08/19/19 21:00 08/20/19 08:56 Colace PO 100 mg BID ALEX Administration Ergocalciferol 1.25 mg 08/20/19 09:00 08/20/19 08:56 Drisdol PO 1.25 mg Q7DAYS ALEX Administration Insulin Glargine 14 units/ 0.14 mls @ 0 mls/hr 08/14/19 21:00 08/19/19 22:37 Miscellaneous Medication SC Not Given HS ALEX Insulin Glargine 10 units/ 0.1 mls @ 0 mls/hr 08/20/19 09:00 08/20/19 09:04 Miscellaneous Medication SC 0.1 mls QAM ALEX Administration Levothyroxine Sodium 88 mcg 08/15/19 06:00 08/20/19 06:29 Synthroid PO 88 mcg 0600 ALEX Administration Lisinopril 20 mg 08/19/19 21:00 08/20/19 08:56 Zestril PO 20 mg BID ALEX Administration Saccharomyces Boulardii 250 mg 08/15/19 09:00 08/20/19 08:56 Florastor PO 250 mg DAILY ALEX Administration Sodium Chloride 10 ml 08/14/19 21:00 08/20/19 08:58 Flush - Normal Saline IVF 10 ml Q12HR ALEX Administration Sodium Chloride 10 ml 08/14/19 09:36 08/17/19 10:45 Flush - Normal Saline IVF 10 ml PRN PRN Administration Saline Flush - Exam Eye: PERRL, anicteric sclera Heart: RRR, no murmur, no gallops, no rubs, normal peripheral pulses Respiratory: CTAB, no wheezes, no rales, no ronchi, normal chest expansion Gastrointestinal: soft, non-tender, non-distended, normal bowel sounds, no palpable masses, no hepatomegaly, no splenomegaly Extremities: no cyanosis, no edema Hosp A/P (1) Acute kidney injury Code(s): N17.9 - ACUTE KIDNEY FAILURE, UNSPECIFIED Status: Acute (2) UTI (urinary tract infection) due to urinary indwelling catheter Code(s): T83.51XA - ; N39.0 - URINARY TRACT INFECTION, SITE NOT SPECIFIED Status: Acute (3) DM2 (diabetes mellitus, type 2) Status: Chronic (4) Hypertension Code(s): I10 - ESSENTIAL (PRIMARY) HYPERTENSION Status: Chronic (5) Uterine cancer Code(s): C55 - MALIGNANT NEOPLASM OF UTERUS, PART UNSPECIFIED Status: Chronic - Plan * UTI- will continue Omnicef * Hypokalemia- will place her on potassium supplementation * DM- blood glucose is stable * Stable for [facility] to [facility] [facility]
[2019-08-20 10:48] LABS: Potassium 3.5 mmol/L (3.5-5.1)
== END 2019-08-20 14:27 | disposition home or self-care (01) | DRG 699 ==
LOC: ERS 19:52 → OBSVTOIN 08-14 01:42 → ONC 08-14 01:42
PROVIDERS: ADMIT Internal Medicine; ATTEND Internal Medicine
DX: T83.511A Infection and inflammatory reaction due to indwelling urethral catheter, initial encounter (principal); N17.9 Acute kidney failure, unspecified; N39.0 Urinary tract infection, site not specified; E03.9 Hypothyroidism, unspecified; E11.9 Type 2 diabetes mellitus without complications; E78.5 Hyperlipidemia, unspecified; B95.2 Enterococcus as the cause of diseases classified elsewhere; C55 Malignant neoplasm of uterus, part unspecified; R53.81 Other malaise; I10 Essential (primary) hypertension; Z90.710 Acquired absence of both cervix and uterus; Z88.2 Allergy status to sulfonamides
CPT/HCPCS: 36415; 36416; 70450; 71045; 76705; 80048; 80053; 80076; 81003; 81015; 82140; 82306; 82378; 83605; 83690; 83930; 84132; 84443; 84484; 85025; 86301; 87077; 87086; 87186; 96361; 96365; J0696; J1815; J3490